=== PATIENT | male | born 1985 | race Caucasian/White ===

== ENCOUNTER 2023-03-24 08:32 | Emergency (ER) | payer OTHER, SELFPAY ==
[2023-03-24 08:38] VITALS: BP 131/82; PULSE 99; RESP 18; TEMP 36.9; O2SAT 99; BMI 32.5
--- NOTE | 2023-03-24 08:57 | ED.GENADUL1 ---
HPI - General Adult General Chief complaint: Dental/Oral Stated complaint: DENTAL PAIN Time Seen by Provider: 03/24/23 08:39 Source: patient Mode of arrival: walk-in Limitations: no limitations History of Present Illness HPI narrative: Patient is a 37-year-old male who is presenting to the Emergency Room with chief complaint of left lower dental pain. Patient has a partially chronic fractured tooth #18. Patient has no significant signs of abscess, swelling, states he does not taste any, pus or foul taste in his mouth. He also has a concurrent mild sinus congestion were in the morning is coughing up yellowish sputum tinged with blood. Patient has minimal swelling to left side of his face. Patient has not seen a dentist in years. Patient says he has a dentist appointment in the beginning of May. Patient denies any trauma, no other acute complaints. . All systems are negative except as noted/marked. All systems reviewed and otherwise negative. . Nurses note and vital signs reviewed and patient is not hypoxic. Nurses notes reviewed and patient is noted to be non-hypoxic. General: The patient is comfortable, alert and oriented x3, well appearing, non toxic in no apparent distress. Head: Atraumatic and normocephalic. Eyes: Normal conjunctiva ENT: The oropharynx is normal. No pharyngeal erythema, uvular edema, tonsillar exudates, asymmetry or trismus. Uvula is midline. Mouth is normal to inspection With the exception of a pain on percussion of the tooth #18 and evidence of dental caries. There is no evidence of facial asymmetry or abscess formation. Floor of the mouth is soft. No tenderness in the submental or submandibular space. No tongue elevation or deviation. The patient has no evidence of periapical abscess, gingivitis, ANUG or other acute pathology. Airway is patent. Neck: The neck demonstrates normal range of motion. No meningeals signs are present. No stridor. No masses or lymphandenopathy noted. Respiratory: No acute distress, lungs are clear to auscultation, no wheezing, rhonchi, or rales noted. No stridor or retractions are noted. Cardiovascular: Regular rate and rhythm Skin: The skin exam shows no evidence of rashes Neuro: Alert and oriented x4, normal speech Lymphatic: No cervical lymphadenopathy Related Data Home Medications Medication Instructions Recorded Confirmed methadone See Rx Instructions PO .COMPLEX 03/24/23 03/24/23 Previous Rx's Medication Instructions Recorded penicillin V potassium 500 mg 500 mg PO TID 10 days #30 tabs 03/24/23 tablet Allergies Allergy/AdvReac Type Severity Reaction Status Date / Time No Known Drug Allergies Allergy Verified 03/24/23 08:37 PFSH PFSH Social History Smoking status: Current every day smoker Exam Constitutional Vital Signs, click to edit/add: Last Vital Signs Temp 98.4 F 03/24/23 08:38 Pulse 99 H 03/24/23 08:38 Resp 18 03/24/23 08:38 BP 131/82 03/24/23 08:38 Pulse Ox 99 03/24/23 08:38 O2 Del Method Room Air 03/24/23 08:38 Course Vital Signs Vital signs: Vital Signs Temperature 98.4 F 03/24/23 08:38 Pulse Rate 99 H 03/24/23 08:38 Respiratory Rate 18 03/24/23 08:38 Blood Pressure 131/82 03/24/23 08:38 Pulse Oximetry 99 03/24/23 08:38 Oxygen Delivery Method Room Air 03/24/23 08:38 Temperature 98.4 F 03/24/23 08:38 Pulse Rate 99 H 03/24/23 08:38 Respiratory Rate 18 03/24/23 08:38 Blood Pressure 131/82 03/24/23 08:38 Pulse Oximetry 99 03/24/23 08:38 Oxygen Delivery Method Room Air 03/24/23 08:38 Medical Decision Making MDM Narrative Medical decision making narrative: Patient has a fractured chronic tooth #18. Patient was placed on Pen-Vee K prophylactically. Patient was given dental analgeesia. Patient has appointment again in May for his dentist. Patient has no acute signs of infection. Education on sinusitis was done at bedside as well along with cranial nerve 7. Patient is To follow-up with dentist, and call multiple dentists To see if somebody can get him in sooner. No questions at discharge. No signs of periapical abscess, gingivitis, ANUG.. Discharge Plan Discharge Chief Complaint: Dental/Oral Clinical Impression: Sinus congestion, Atypical face pain, Dental caries, Toothache Patient Disposition: Home, Self-Care Time of Disposition Decision: 08:53 Condition: Fair Prescriptions / Home Meds: New penicillin V potassium 500 mg tablet 500 mg PO TID 10 Days Qty: 30 0RF No Action methadone [Methadone Intensol] See Rx Instructions PO .COMPLEX Rx Instructions: 110 mg orally; Instructions: Cold Symptoms (ED), Toothache (ED), Sympathetic Nerve Block (DC), Atypical Facial Pain (ED) Additional Instructions: Use DayQuil, NyQuil, Flonase Diffuse dental analgesia as needed for pain, use half or one Cotton ball every 4-6 hours as needed for pain. Do not use more than that and more often secondary to possibility of to much lidocaine exposure [facility] list has been given to you. He will not have a relief of the pain into that tooth is extracted has discussed Stand Alone Forms: Portal Instructions Referrals: Physician,Non-Staff, MD [Primary Care Provider] - 1 week Discharge Date/Time: 03/24/23 09:17
[2023-03-24] MEDS: BENZOCAINE 30 ML, lidocaine HCL 15 ML MM (09:12)
== END 2023-03-24 09:17 | disposition home or self-care (01) ==
PROVIDERS: Emergency Provider Emergency Medicine
DX: K02.9 Dental caries, unspecified (principal); G50.1 Atypical facial pain; K08.89 Other specified disorders of teeth and supporting structures; F17.200 Nicotine dependence, unspecified, uncomplicated
CPT/HCPCS: 99283